=== PATIENT | male | born 1985 | race African-American/Black ===

== ENCOUNTER 2023-01-22 03:49 | Emergency (ER) | payer OTHER ==
[2023-01-22] MEDS ORDERED: TOPUD PO (07:51)
[2023-01-22 09:28] VITALS: BP 140/87; PULSE 87; RESP 19; TEMP 98.9
== END 2023-01-22 09:31 | disposition home or self-care (01) ==
LOC: ER 03:49
DX: S06.0X0A Concussion without loss of consciousness, initial encounter (principal); R51.9 Headache, unspecified; X58.XXXA Exposure to other specified factors, initial encounter; Y93.89 Activity, other specified; Y92.89 Other specified places as the place of occurrence of the external cause; Y99.8 Other external cause status
CPT/HCPCS: 99284